=== PATIENT | male | born 1995 | race African-American/Black ===

== ENCOUNTER 2022-04-14 09:25 | Emergency (ER) | payer OTHER ==
[2022-04-14] MEDS ORDERED: SUMAtriptan 6 MG/0.5 ML VIAL SUBQ STA (12:40)
--- NOTE | 2022-04-14 12:41 | ED Physician Documentation ---
PD HPI HEADACHE - Stated complaint Stated Complaint: UP - Chief complaint Chief Complaint: Neuro - History obtained from History obtained from: Patient - Additional information Additional information: 26-year-old gentleman with no history of primary headache syndrome developed bitemporal headaches all day every day for the last 3 weeks. Its associated with very mild sound sensitivity. He had sinus congestion at one point but that is gone. There is no associated fevers or chills. He is tried NSAIDs and Tylenol without relief. No neck stiffness. No sudden onset headaches. He is able to sleep through the headaches. He notes that he is under a lot of stress, was also recently diagnosed with depression and ADD but does not want to take meds for those. Review of Systems Constitutional: denies: Fever, Chills Eyes: denies: Loss of vision, Decreased vision, Photophobia, Discharge, Irritation Ears: denies: Loss of hearing, Ear pain Nose: denies: Rhinorrhea / runny nose, Congestion Throat: denies: Dental pain / toothache, Sore throat PD PAST MEDICAL HISTORY - Present Medications Home Medications: Ambulatory Orders Medication Instructions Recorded Confirmed SUMAtriptan [Imitrex] 25 mg PO BID PRN #20 tablet 04/14/22 - Allergies Allergies/Adverse Reactions: Allergies Allergy/AdvReac Type Severity Reaction Status Date / Time No Known Drug Allergies Allergy Verified 04/14/22 10:06 PD ED PE NORMAL - Vitals Vital signs reviewed: Yes - General General: Alert and oriented X 3, No acute distress - HEENT HEENT: PERRL, EOMI - Neck Neck: Supple, no meningeal sign, No bony TTP - Neuro Neuro: Alert and oriented X 3, hand roller 2-12 intact, No motor deficit, No sensory deficit, Normal speech, Other (NIH stroke scale of 0) Eye Opening: Spontaneous Motor: Obeys Commands Verbal: Oriented GCS Score: 15 Results - Vitals Vitals: Vital Signs - 24 hr 04/14/22 04/14/22 04/14/22 10:06 10:10 12:10 Temperature 36.5 C 36.5 C 36.7 C Heart Rate 80 80 80 Respiratory 16 16 16 Rate Blood Pressure 131/69 H 131/69 H 138/77 H O2 Saturation 100 100 98 Oxygen O2 Source Room air - Labs Labs: Laboratory Tests 04/14/22 12:56 POC Whole Bld Glucose 102 H - Rads (name of study) CT HEAD Radiology: EMP read contemporaneously (NAD) PD MEDICAL DECISION MAKING - ED course ED course: This young man presents with new daily headaches for the last 3 weeks. No history of a primary headache syndrome. As such CT imaging was done and negative. He was administered subcutaneous Imitrex with complete relief of his headache here. Departure - Departure Disposition: 01 Home, Self Care Clinical Impression: Migraine Condition: Good Record reviewed to determine appropriate education?: Yes Instructions: Imitrex, ED Headache Migraine Prescriptions: SUMAtriptan [Imitrex] 25 mg PO BID PRN #20 tablet PRN Reason: Headache Comments: You are seen today for a new daily headache of 3 weeks duration with a normal exam. Head CT was done and without findings of tumor or any other abnormality. You received a shot of Imitrex here with relief of the headache suggesting that this is migrainous. Call your doctor to arrange a follow-up appointment, make the next available appointment. In the interim, return anytime if worse or if new symptoms de velop.
--- NOTE | 2022-04-14 13:03 | CT Report ---
PROCEDURE: HEAD WO INDICATIONS: headche TECHNIQUE: Noncontrast 4.5 mm thick angled axial sections acquired from the foramen magnum to the vertex. For r adiation dose reduction, the following was used: automated exposure control, adjustment of mA and/or kV according to patient size. COMPARISON: None. FINDINGS: Image quality: Excellent. CSF spaces: Basal cisterns are patent. No extra-axial fluid collections. Ventricles are normal in size and shape. Brain: No midline shift. No intracranial masses or hemorrhage. Ochoa-white matter interface is norm al. Skull and face: Calvarium and visualized facial bones are intact, without suspicious lesions. Sinuses: Visualized sinuses and mastoids are clear. IMPRESSION: 1. No acute intracranial process. Reviewed by: Dana Taylor MD on 04/14/2022 1:01 PM PDT Approved by: Dana Taylor MD on 04/14/2022 1:01 PM PDT Station ID: [id number]
[2022-04-14 13:16] VITALS: BP 138/77
== END 2022-04-14 13:39 | disposition home or self-care (01) ==
LOC: ED 09:25
DX: G43.909 Migraine, unspecified, not intractable, without status migrainosus (principal)
CPT/HCPCS: 96372; 99282; 99284